=== PATIENT | female | born 1965 | race Caucasian/White ===

== ENCOUNTER → 2017-03-15 | Outpatient (CLI) | payer BC ==
--- NOTE | 2017-03-15 17:05 | REP ---
RIGHT KNEE, FIVE VIEWS: HISTORY: Pain. There is no acute fracture or dislocation. There is narrowing of the medial knee joint space. IMPRESSION: Degenerative change as described above. Signed by Ruslan Wright MD 03/15/2017 05:07 P
== END ==
LOC: M WUC 15:37
PROVIDERS: ATTEND Physician Assistant
DX: M17.11 Unilateral primary osteoarthritis, right knee (principal)

== ENCOUNTER 2025-06-28 06:04 | Day surgery (SDC) | payer BC, SELFPAY ==
[~2025-06-28] VITALS: Ht 149.9 cm; Wt 112.2 kg
[~2025-06-28 06:04] MED LIST: LOSA50TA28 PO; PHENYLEPHRINE 10% OPHTH SOL 5ML OD PRN; ROSU20TA86 PO
[2025-06-28] MEDS ORDERED: MIDAZOLAM INJ 2 MG/2 ML VIAL As Ordered ONE (06:55)
[2025-06-28] MEDS: LIDOCAINE 1% SDV 5 ML VIAL As Ordered ONE (07:57)
[2025-06-28] MEDS: TRYPAN BLUE 0.06 % 2.25 ML OPHTH SYR (VISIONBLUE) As Ordered ONE (07:58)
[2025-06-28] MEDS: BSS IRRIG/VANCO(10MG)/TOBRA(5MG)/EPINEPH(1:1000-0.5CC)500ML BAG-ORONLY As Ordered ONE (07:59)
[2025-06-28] MEDS: VISCOAT 40-30MG/ML 0.5ML SYRINGE As Ordered ONE (08:00)
[2025-06-28] MEDS: CEFUROXIME 1 MG/0.1 ML INTRACAMERAL INJ As Ordered ONE (08:07)
[2025-06-28] MEDS: TROPICAMIDE 1% OPHTH SOLN 15ML OD SCH (08:13)
[2025-06-28] MEDS: CYCLOPENTOLATE 1% OPHTH SOLN 2 ML BTL OD SCH (08:14)
[2025-06-28] MEDS: LIDOCAINE 3.5% 1 ML OPHTH TOPICAL GEL OU ONE (08:14)
[2025-06-28] MEDS: PHENYLEPHRINE 2.5% OPHTH SOL 2ML OD SCH (08:14)
[2025-06-28] MEDS: OFLOXACIN 0.3 % (OCUFLOX) OPTH SOL 5ML OD ONE (08:14)
[2025-06-28 08:15] VITALS: BP 144/64; TEMP 97.5; O2SAT 98
== END 2025-06-28 08:28 | disposition home or self-care (01) ==
LOC: M SDC 06:04
PROVIDERS: ATTEND Ophthalmology
DX: H25.11 Age-related nuclear cataract, right eye (principal); I10 Essential (primary) hypertension; E78.00 Pure hypercholesterolemia, unspecified; F17.210 Nicotine dependence, cigarettes, uncomplicated; Z79.899 Other long term (current) drug therapy
CPT/HCPCS: 66984; 92015; A4649; J0697; J2250; J3010; V2632

== ENCOUNTER → 2025-07-12 | Day surgery (SDC) | payer BC ==
[~2025-07-12] VITALS: Ht 149.9 cm; Wt 113.4 kg
[~2025-07-12] MED LIST changes: +CYCLOPENTOLATE 1% OPHTH SOLN 2 ML BTL As Ordered ONE; +LIDOCAINE 3.5% 1 ML OPHTH TOPICAL GEL As Ordered ONE; +MIDAZOLAM INJ 2 MG/2 ML VIAL As Ordered ONE; +OFLOXACIN 0.3 % (OCUFLOX) OPTH SOL 5ML As Ordered ONE; -PHENYLEPHRINE 10% OPHTH SOL 5ML OD PRN; +PHENYLEPHRINE 10% OPHTH SOL 5ML OS PRN; +PHENYLEPHRINE 2.5% OPHTH SOL 2ML As Ordered ONE; +TOBRAMYCIN 0.3% OPHTH SOLN 5ML As Ordered ONE; +TROPICAMIDE 1% OPHTH SOLN 15ML As Ordered ONE
[2025-07-12] MEDS: CYCLOPENTOLATE 1% OPHTH SOLN 2 ML BTL OS SCH (08:11)
[2025-07-12] MEDS: OFLOXACIN 0.3 % (OCUFLOX) OPTH SOL 5ML OS ONE (08:11)
[2025-07-12] MEDS: PHENYLEPHRINE 2.5% OPHTH SOL 2ML OS SCH (08:11)
[2025-07-12] MEDS: LIDOCAINE 3.5% 1 ML OPHTH TOPICAL GEL OU ONE (08:11)
[2025-07-12] MEDS: TROPICAMIDE 1% OPHTH SOLN 15ML OS SCH (08:11)
[2025-07-12] MEDS: LIDOCAINE 1% SDV 5 ML VIAL As Ordered ONE (08:45)
[2025-07-12] MEDS: CEFUROXIME 1 MG/0.1 ML INTRACAMERAL INJ As Ordered ONE (08:45)
[2025-07-12 08:55] VITALS: BP 121/58; TEMP 97.1; O2SAT 98
== END | disposition home or self-care (01) ==
LOC: M SDC 06:05
PROVIDERS: ATTEND Ophthalmology
DX: H25.12 Age-related nuclear cataract, left eye (principal); I10 Essential (primary) hypertension; E78.00 Pure hypercholesterolemia, unspecified; Z79.899 Other long term (current) drug therapy; F17.210 Nicotine dependence, cigarettes, uncomplicated; Z98.41 Cataract extraction status, right eye
CPT/HCPCS: 66984; J0697; J2250; J3010; V2632